=== PATIENT | male | born 1975 | race Caucasian/White ===

== ENCOUNTER 2018-01-13 08:18 | Inpatient (IN) | payer OTHER ==
[2018-01-13] MEDS ORDERED: PIPERACILLIN-TAZOBACTAM 3.375 GM in DEXTROSE/WATER 1 50ML.BAG IVPB STA (08:56)
--- NOTE | 2018-01-13 08:57 | ED ---
Recheck HPI <Red Earl - Last Filed: 01/13/18 11:52> - General Source: patient, RN notes reviewed, old records reviewed Mode of arrival: ambulatory Limitations: no limitations <Shannan Cabral - Last Filed: 01/13/18 13:28> - General Chief Complaint: Recheck/Abnormal Lab/Rx Stated Complaint: diabetic ulcer, multiple issues Time Seen by Provider: 01/13/18 08:28 - History of Present Illness Initial Comments: patient is a 42-year-old male who recently moved back to the area chief complaint of needing his diabetic medications refilled and concern for a ulcer on the left lateral aspect of his foot. Patient reports that he has a history of alcoholism and had a TIPS procedure performed at 2012. Patient states that he is been doing well up until he was in [place] in July. He was admitted for high ammonia levels and confusion. He reports these been stabilized since then. Since his admission in [place] he has been out of his diabetic medications. He states that he return to this area 3 days ago. Patient states that he does not have a primary care provider has been out of his medications for his diabetes for many months. That is why he believes that he now has a diabetic ulcer. Patient states that he's noticed some swelling and redness extending up the left leg. He reports he has no chest pain or abdominal pain. Denies any specific fever but he has felt chills. Patient states that he has neuropathy in bilateralupper and lower extremities. (Shannan Cabral) - Related Data Home Medications Medication Instructions Recorded Confirmed No Known Home Medications [No 01/13/18 01/13/18 Known Home Medications] Allergies Allergy/AdvReac Type Severity Reaction Status Date / Time No Known Allergies Allergy Verified 01/13/18 08:50 Review of Systems ROS Other: All systems not noted in ROS Statement are negative. <Red Earl - Last Filed: 01/13/18 11:52> ROS Other: All systems not noted in ROS Statement are negative. <Shannan Cabral - Last Filed: 01/13/18 13:28> ROS Statement: Those systems with pertinent positive or pertinent negative responses have been documented in the HPI. Past Medical History Past Medical History: Diabetes Mellitus, Liver Disease History of Any Multi-Drug Resistant Organisms: None Reported Past Psychological History: Anxiety, Depression Smoking Status: Current every day smoker Past Alcohol Use History: Occasional Past Drug Use History: Marijuana <Shannan Cabral - Last Filed: 01/13/18 13:28> General Exam <Red Earl - Last Filed: 01/13/18 11:52> Limitations: no limitations General appearance: alert, in no apparent distress Head exam: Present: atraumatic, normocephalic, normal inspection Eye exam: Present: normal appearance, PERRL, EOMI. Absent: scleral icterus, conjunctival injection, periorbital swelling ENT exam: Present: normal exam, mucous membranes moist Neck exam: Present: normal inspection. Absent: tenderness, meningismus, lymphadenopathy Respiratory exam: Present: normal lung sounds bilaterally. Absent: respiratory distress, wheezes, rales, rhonchi, stridor Cardiovascular Exam: Present: regular rate, normal rhythm, normal heart sounds. Absent: systolic murmur, diastolic murmur, rubs, gallop, clicks GI/Abdominal exam: Present: soft, normal bowel sounds. Absent: distended, tenderness, guarding, rebound, rigid Extremities exam: Present: normal inspection, full ROM, normal capillary refill. Absent: tenderness, pedal edema, joint swelling, calf tenderness Left Lower Leg exam: Present: tenderness, swelling, erythema. Absent: normal inspection Ankle exam: Present: full ROM, tenderness, swelling. Absent: normal inspection Foot/Toe exam: Present: swelling, erythema. Absent: normal inspection (Patient has a 3 cm ulceration over the distal fifth metatarsal and lateral aspect of the foot.) Neurovascular tendon exam: Present: no vascular compromise Back exam: Present: normal inspection Neurological exam: Present: alert, oriented X3, CN II-XII intact Psychiatric exam: Present: normal affect, normal mood Skin exam: Present: warm, dry, intact, normal color. Absent: rash <Shannan Cabral - Last Filed: 01/13/18 13:28> - General Exam Comments Initial Comments: this is a 42-year-old male. He is pleasant. Alert and oriented 4. No acute distress. (Shannan Cabral) Course <Red Earl - Last Filed: 01/13/18 11:52> <Shannan Cabral - Last Filed: 01/13/18 13:28> Vital Signs 01/13/18 01/13/18 01/13/18 08:22 11:19 12:33 Temperature 98.1 F 98.6 F Pulse Rate 104 H 94 96 Respiratory 20 18 18 Rate Blood Pressure 113/59 139/79 106/68 O2 Sat by Pulse 98 98 98 Oximetry - Reevaluation(s) Reevaluation #1: 01/13/18 11:52 Patient reevaluated by myself, Dr. Earl. Patient does have ulcer of the left foot near the small toe, approximately 2 cm. There is some erythematous changes up to near the knee. There is warmth. No calf tenderness. Patient admits to not taking medication for diabetes recently. Blood sugars high. Case was discussed in detail with Dr. Carr, who will admit for hospital call. Patient was Updated. (Red Earl) Medical Decision Making - Lab Data Result diagrams: 01/13/18 08:53 01/13/18 08:53 <Red Earl - Last Filed: 01/13/18 11:52> - Lab Data Result diagrams: 01/13/18 08:53 01/13/18 08:53 - Radiology Data Radiology results: report reviewed <Shannan Cabral - Last Filed: 01/13/18 13:28> - Medical Decision Making This patient 42-year-old male with history of alcoholism and seizure many years ago. He states that he has history of diabetes and not been taking his medications for a long time. HEENT been over a few months. He states that he is concerned because is swelling and redness to the left lower extremity. He is concerned for an ulcer over the last wet foot. He has a 3 cm ulcer with surrounding cellulitis extending up the calf. His blood sugar is elevated 560. Started on insulin bolus. He doesn't elevated lactic acid 2.6. He does meet sepsis protocol. Patient was started on Zosyn and vancomycin. X-ray of the foot shows soft tissue swelling but no evidence of osteomyelitis. Patient was admitted to Dr. Carr's group. We will keep the patient for blood sugar control and infectious disease. (Shannan Cabral) - Lab Data Lab Results 01/13/18 01/13/18 01/13/18 Range/Units 08:53 08:53 08:53 WBC 3.2 L (3.8-10.6) k/uL RBC 2.68 L (4.30-5.90) m/uL Hgb 8.4 L (13.0-17.5) gm/dL Hct 25.0 L (39.0-53.0) % MCV 93.2 (80.0-100.0) fL MCH 31.4 (25.0-35.0) pg MCHC 33.7 (31.0-37.0) g/dL RDW 13.6 (11.5-15.5) % Plt Count 67 L (150-450) k/uL Neutrophils % 66 % Lymphocytes % 20 % Monocytes % 6 % Eosinophils % 5 % Basophils % 1 % Neutrophils # 2.1 (1.3-7.7) k/uL Lymphocytes # 0.6 L (1.0-4.8) k/uL Monocytes # 0.2 (0-1.0) k/uL Eosinophils # 0.2 (0-0.7) k/uL Basophils # 0.0 (0-0.2) k/uL Manual Slide Review Performed RBC Morphology Normal PT 11.4 (9.0-12.0) sec INR 1.2 H (<1.2) APTT 25.8 (22.0-30.0) sec Sodium 138 (137-145) mmol/L Potassium 4.4 (3.5-5.1) mmol/L Chloride 103 (98-107) mmol/L Carbon Dioxide 23 (22-30) mmol/L Anion Gap 12 mmol/L BUN 23 H (9-20) mg/dL Creatinine 1.28 H (0.66-1.25) mg/dL Est GFR (CKD-EPI)AfAm 78 (>60 ml/min/1.73 sqM) Est GFR (CKD-EPI)NonAf 68 (>60 ml/min/1.73 sqM) Glucose 513 H* (74-99) mg/dL POC Glucose (mg/dL) (75-99) mg/dL POC Glu Glass Curvature Gauger ID Lactic Ac Sepsis Rflx Plasma Lactic Acid Davi (0.7-2.0) mmol/L Calcium 8.6 (8.4-10.2) mg/dL Total Bilirubin 1.0 (0.2-1.3) mg/dL AST 19 (17-59) U/L ALT 18 L (21-72) U/L Alkaline Phosphatase 82 (38-126) U/L Total Protein 6.1 L (6.3-8.2) g/dL Albumin 2.9 L (3.5-5.0) g/dL Acetone, Qual (Negative) 01/13/18 01/13/18 01/13/18 Range/Units 08:53 08:53 09:59 WBC (3.8-10.6) k/uL RBC (4.30-5.90) m/uL Hgb (13.0-17.5) gm/dL Hct (39.0-53.0) % MCV (80.0-100.0) fL MCH (25.0-35.0) pg MCHC (31.0-37.0) g/dL RDW (11.5-15.5) % Plt Count (150-450) k/uL Neutrophils % % Lymphocytes % % Monocytes % % Eosinophils % % Basophils % % Neutrophils # (1.3-7.7) k/uL Lymphocytes # (1.0-4.8) k/uL Monocytes # (0-1.0) k/uL Eosinophils # (0-0.7) k/uL Basophils # (0-0.2) k/uL Manual Slide Review RBC Morphology PT (9.0-12.0) sec INR (<1.2) APTT (22.0-30.0) sec Sodium (137-145) mmol/L Potassium (3.5-5.1) mmol/L Chloride (98-107) mmol/L Carbon Dioxide (22-30) mmol/L Anion Gap mmol/L BUN (9-20) mg/dL Creatinine (0.66-1.25) mg/dL Est GFR (CKD-EPI)AfAm (>60 ml/min/1.73 sqM) Est GFR (CKD-EPI)NonAf (>60 ml/min/1.73 sqM) Glucose (74-99) mg/dL POC Glucose (mg/dL) (75-99) mg/dL POC Glu Glass Curvature Gauger ID Lactic Ac Sepsis Rflx Y Plasma Lactic Acid Davi 2.6 H* (0.7-2.0) mmol/L Calcium (8.4-10.2) mg/dL Total Bilirubin (0.2-1.3) mg/dL AST (17-59) U/L ALT (21-72) U/L Alkaline Phosphatase (38-126) U/L Total Protein (6.3-8.2) g/dL Albumin (3.5-5.0) g/dL Acetone, Qual Negative (Negative) 01/13/18 01/13/18 01/13/18 Range/Units 11:01 11:56 12:31 WBC (3.8-10.6) k/uL RBC (4.30-5.90) m/uL Hgb (13.0-17.5) gm/dL Hct (39.0-53.0) % MCV (80.0-100.0) fL MCH (25.0-35.0) pg MCHC (31.0-37.0) g/dL RDW (11.5-15.5) % Plt Count (150-450) k/uL Neutrophils % % Lymphocytes % % Monocytes % % Eosinophils % % Basophils % % Neutrophils # (1.3-7.7) k/uL Lymphocytes # (1.0-4.8) k/uL Monocytes # (0-1.0) k/uL Eosinophils # (0-0.7) k/uL Basophils # (0-0.2) k/uL Manual Slide Review RBC Morphology PT (9.0-12.0) sec INR (<1.2) APTT (22.0-30.0) sec Sodium (137-145) mmol/L Potassium (3.5-5.1) mmol/L Chloride (98-107) mmol/L Carbon Dioxide (22-30) mmol/L Anion Gap mmol/L BUN (9-20) mg/dL Creatinine (0.66-1.25) mg/dL Est GFR (CKD-EPI)AfAm (>60 ml/min/1.73 sqM) Est GFR (CKD-EPI)NonAf (>60 ml/min/1.73 sqM) Glucose (74-99) mg/dL POC Glucose (mg/dL) 542 H 545 H 478 H (75-99) mg/dL POC Glu Glass Curvature Gauger ID Radha Chiu Ariel Thompson, Karen Lactic Ac Sepsis Rflx Plasma Lactic Acid Davi (0.7-2.0) mmol/L Calcium (8.4-10.2) mg/dL Total Bilirubin (0.2-1.3) mg/dL AST (17-59) U/L ALT (21-72) U/L Alkaline Phosphatase (38-126) U/L Total Protein (6.3-8.2) g/dL Albumin (3.5-5.0) g/dL Acetone, Qual (Negative) - Radiology Data X-ray the foot shows evidence of soft tissue swelling. No visible osteomyelitis. (Shannan Cabral) Disposition <Red Earl - Last Filed: 01/13/18 11:52> Time of Disposition: 12:07 <Shannan Cabral - Last Filed: 01/13/18 13:28> Clinical Impression: Diabetic ulcer of left foot, Hyperglycemia, Sepsis, Cellulitis, leg Disposition: HOME SELF-CARE Condition: Good Referrals: None,Stated [Primary Care Provider] - 1-2 days
[2018-01-13] MEDS: SODIUM CHLORIDE 0.9% 1,000 ML IV ONE ×2 (09:01→10:22)
[2018-01-13] MEDS: SODIUM CHLORIDE 0.9% 1,000 ML IV SCH ×6 (09:01→23:21)
--- NOTE | 2018-01-13 09:23 | XR ---
EXAMINATION TYPE: XR foot complete LT DATE OF EXAM: 01/13/2018 CLINICAL HISTORY: Plantar lateral ulceration with history of diabetes. TECHNIQUE: Frontal, lateral, and oblique images of the left foot are obtained. COMPARISON: None FINDINGS: There is soft tissue swelling seen diffusely of the midfoot and forefoot most pronounced do rsally with small vessel atheromatous calcifications suggestive of peripheral arterial disease. Small Achilles and plantar enthesophytes are noted. No cortical erosions or cortical thickening are seen. There is no acute fracture/dislocation evident in the left foot. The joint spaces in the left foot a ppear within normal limits. IMPRESSION: Diffuse soft tissue swelling of the left foot most pronounced of the midfoot and forefoot with no radiographic sequela of osteomyelitis.
[2018-01-13 09:30] LABS: INR 1.2 (<1.2); Partial Thromboplastin Time 25.8 sec (22.0-30.0); Prothrombin Time 11.4 sec (9.0-12.0)
[2018-01-13 09:42] LABS: Albumin 2.9 g/dL (3.5-5.0); Calcium 8.6 mg/dL (8.4-10.2); Potassium 4.4 mmol/L (3.5-5.1); Total Protein 6.1 g/dL (6.3-8.2)
[2018-01-13 09:50] LABS: Basophils % (A) 1 %; Eosinophils # (A) 0.2 k/uL (0-0.7); Eosinophils % (A) 5 %; HGB 8.4 gm/dL (13.0-17.5); Lymphocytes # (A) 0.6 k/uL (1.0-4.8); Lymphocytes % (A) 20 %; MCH 31.4 pg (25.0-35.0); MCHC 33.7 g/dL (31.0-37.0); MCV 93.2 fL (80.0-100.0); Mean Platelet Volume 9.2; Monocytes # (A) 0.2 k/uL (0-1.0); Monocytes % (A) 6 %; Neutrophils # (A) 2.1 k/uL (1.3-7.7); Neutrophils % (A) 66 %; RBC 2.68 m/uL (4.30-5.90); RDW 13.6 % (11.5-15.5); WBC 3.2 k/uL (3.8-10.6)
[2018-01-13] MEDS ORDERED: INSULIN REGULAR BOLUS (FROM DRIP BAG) IV ONE (10:16)
[2018-01-13] MEDS ORDERED: INSULIN REGULAR 100 UNIT in SODIUM CHLORIDE 0.9% 100 ML IV SCH ×2 (10:30→15:00)
[2018-01-13 10:46] LABS: Platelet Count 67 k/uL (150-450)
[2018-01-13 11:05] LABS: Glucose,Whole Blood 542 mg/dL (75-99)
[2018-01-13] MEDS ORDERED: LORazepam 2 MG/ML INJ IV STA (11:50)
[2018-01-13] MEDS ORDERED: ALPRAZolam 0.5 MG TAB PO STA (11:50)
[2018-01-13 12:03] LABS: Glucose,Whole Blood 545 mg/dL (75-99)
[2018-01-13] MEDS ORDERED: VANCOMYCIN IV PER PHARMACY 1 EACH MISC MISCELLANE PRN (12:07)
[2018-01-13] MEDS ORDERED: KETOROLAC 30 MG/ML 1 ML VIAL IVP PRN (12:09)
[2018-01-13] MEDS ORDERED: IBUPROFEN 400 MG TAB PO PRN (12:09)
[2018-01-13] MEDS ORDERED: ONDANSETRON 4 MG/2 ML VIAL IVP PRN (12:09)
[2018-01-13] MEDS ORDERED: ACETAMINOPHEN TAB 325 MG TAB PO PRN (12:09)
[2018-01-13] MEDS ORDERED: NALOXONE 0.4 MG/ML 1 ML VIAL IV PRN (12:09)
[2018-01-13] MEDS ORDERED: INSULIN ASPART 100 UNIT/ML 1 ML 10 ML VIAL SQ SCH (12:30)
[2018-01-13 12:32] LABS: Glucose,Whole Blood 478 mg/dL (75-99)
[2018-01-13] MEDS ORDERED: VANCOMYCIN 2,500 MG in SODIUM CHLORIDE 0.9% 500 ML IVPB ONE (13:00)
--- NOTE | 2018-01-13 13:29 | US ---
EXAMINATION TYPE: US venous doppler duplex LE LT DATE OF EXAM: 01/13/2018 1:18 PM COMPARISON: NONE CLINICAL HISTORY: Pain. Diabetic. No hx of DVT or on blood thinners. Left foot ulcer. SIDE PERFORMED: Left TECHNIQUE: The lower extremity deep venous system is examined utilizing real time linear array sonog pk with graded compression, doppler sonography and color-flow sonography. VESSELS IMAGED: External Iliac Vein (EIV) Common Femoral Vein Deep Femoral Vein Greater Saphenous Vein * Femoral Vein Popliteal Vein Small Saphenous Vein * Proximal Calf Veins (* superficial vessels) Left Leg: Negative for DVT Grayscale, color doppler, spectral doppler imaging performed of the deep veins of the left lower extr emity. There is normal flow, compressibility, vascular waveforms. IMPRESSION: No ultrasound evidence for acute DVT in the left lower extremity.
[2018-01-13 13:41] LABS: Glucose,Whole Blood 401 mg/dL (75-99)
[2018-01-13 14:49] VITALS: BMI 31.4
[2018-01-13] MEDS ORDERED: traMADol 50 MG TAB PO PRN (14:54)
[2018-01-13] MEDS: ALPRAZolam 0.5 MG TAB PO PRN ×2 (15:11→23:19)
[2018-01-13] MEDS: MORPHINE SULFATE/PF 10MG/10ML VL IV PRN ×2 (15:11→23:18)
[2018-01-13 15:31] LABS: Glucose,Whole Blood 290 mg/dL (75-99)
--- NOTE | 2018-01-13 16:50 | P.HPIM ---
History of Present Illness 42-year-old male with known history of type 2 diabetes mellitus but does stop taking his diuretic medications came in with complaints of a left foot ulcer in the lateral, plantar aspect of the left fifth toe. With local is of temperature and patient had these symptoms going on for about a week or more denied any fever chills. Patient has pancytopenia he used to be an alcoholic in the past he said he doesn't drink alcohol on regular basis anymore will obtain a B12 level today patient's MCV is essentially within normal limits. Patient has a lot of anxiety issues. Patient was started on vancomycin and Zosyn wound cultures and blood cultures were obtained. Patient does have severe bilateral peripheral neuropathy but still complains of severe pain patient is barely arousable when I tried to evaluate the patient and did not provide me good history Review of Systems REVIEW OF SYSTEMS: CONSTITUTIONAL: No fever, no malaise, no fatigue. HEENT: No recent visual problems or hearing problems. Denied any sore throat. CARDIOVASCULAR: No chest pain, orthopnea, PND, no palpitations, no syncope. PULMONARY: No shortness of breath, no cough, no hemoptysis. GASTROINTESTINAL: No diarrhea, no nausea, no vomiting, no abdominal pain. Normoactive bowel sounds. NEUROLOGICAL: No headaches, no weakness, no numbness. HEMATOLOGICAL: Denies any bleeding or petechiae. GENITOURINARY: Denies any burning micturition, frequency, or urgency. MUSCULOSKELETAL/RHEUMATOLOGICAL: As mentioned in HPI ENDOCRINE: Denies any polyuria or polydipsia. The rest of the 14-point review of systems is negative. Past Medical History Past Medical History: Diabetes Mellitus, Liver Disease Additional Past Medical History / Comment(s): NIDDM type II, cirrhosis, alcoholism, esophageal varicies, upper and lower GI bleeds, pt states lately he has been having confusion/memory impairment/shakiness and balance problems. History of Any Multi-Drug Resistant Organisms: None Reported Additional Past Surgical History / Comment(s): EGD, TIPS procedure Past Anesthesia/Blood Transfusion Reactions: No Reported Reaction Past Psychological History: Anxiety, Depression Smoking Status: Current every day smoker Past Alcohol Use History: Occasional Past Drug Use History: Marijuana - Past Family History Father Additional Family Medical History / Comment(s): " My dad drank himself to . " Mother Family Medical History: Cancer Additional Family Medical History / Comment(s): Mother from pancreatic cancer. Medications and Allergies Home Medications Medication Instructions Recorded Confirmed Type No Known Home Medications [No 01/13/18 01/13/18 History Known Home Medications] Allergies Allergy/AdvReac Type Severity Reaction Status Date / Time No Known Allergies Allergy Verified 01/13/18 08:50 Physical Exam Vitals: Vital Signs Temp Pulse Pulse Resp BP BP Pulse Ox 01/13/18 16:00 91 20 01/13/18 15:00 98 F 91 20 113/63 98 01/13/18 13:40 98.5 F 94 18 121/78 98 01/13/18 12:33 98.6 F 96 18 106/68 98 01/13/18 11:19 94 18 139/79 98 01/13/18 08:22 98.1 F 104 H 20 113/59 98 Intake and Output 01/13/18 01/13/18 01/13/18 06:59 14:59 22:59 Other: Weight 120.202 kg 120.202 kg PHYSICAL EXAMINATION: GENERAL: The patient is alert and oriented x3, not in any acute distress. Well developed, well nourished. HEENT: Pupils are round and equally reacting to light. EOMI. No scleral icterus. No conjunctival pallor. Normocephalic, atraumatic. No pharyngeal erythema. No thyromegaly. CARDIOVASCULAR: S1 and S2 present. No murmurs, rubs, or gallops. PULMONARY: Chest is clear to auscultation, no wheezing or crackles. ABDOMEN: Soft, nontender, nondistended, normoactive bowel sounds. No palpable organomegaly. MUSCULOSKELETAL: No joint swelling or deformity. EXTREMITIES: No cyanosis, clubbing, A stage 3-4 dependent ulcer in the plantar and lateral aspect of the proximal to left fifth toe with local is of temperature and minimal redness NEUROLOGICAL: Gross neurological examination did not reveal any focal deficits. SKIN: No rashes. Results CBC & Chem 7: 01/13/18 08:53 01/13/18 08:53 Labs: Abnormal Lab Results - Last 24 Hours (Table) 01/13/18 01/13/18 01/13/18 Range/Units 08:53 08:53 08:53 WBC 3.2 L (3.8-10.6) k/uL RBC 2.68 L (4.30-5.90) m/uL Hgb 8.4 L (13.0-17.5) gm/dL Hct 25.0 L (39.0-53.0) % Plt Count 67 L (150-450) k/uL Lymphocytes # 0.6 L (1.0-4.8) k/uL INR 1.2 H (<1.2) BUN 23 H (9-20) mg/dL Creatinine 1.28 H (0.66-1.25) mg/dL Glucose 513 H* (74-99) mg/dL POC Glucose (mg/dL) (75-99) mg/dL Plasma Lactic Acid Davi (0.7-2.0) mmol/L ALT 18 L (21-72) U/L Total Protein 6.1 L (6.3-8.2) g/dL Albumin 2.9 L (3.5-5.0) g/dL 01/13/18 01/13/18 01/13/18 Range/Units 08:53 11:01 11:56 WBC (3.8-10.6) k/uL RBC (4.30-5.90) m/uL Hgb (13.0-17.5) gm/dL Hct (39.0-53.0) % Plt Count (150-450) k/uL Lymphocytes # (1.0-4.8) k/uL INR (<1.2) BUN (9-20) mg/dL Creatinine (0.66-1.25) mg/dL Glucose (74-99) mg/dL POC Glucose (mg/dL) 542 H 545 H (75-99) mg/dL Plasma Lactic Acid Davi 2.6 H* (0.7-2.0) mmol/L ALT (21-72) U/L Total Protein (6.3-8.2) g/dL Albumin (3.5-5.0) g/dL 01/13/18 01/13/18 01/13/18 Range/Units 12:31 13:18 13:37 WBC (3.8-10.6) k/uL RBC (4.30-5.90) m/uL Hgb (13.0-17.5) gm/dL Hct (39.0-53.0) % Plt Count (150-450) k/uL Lymphocytes # (1.0-4.8) k/uL INR (<1.2) BUN (9-20) mg/dL Creatinine (0.66-1.25) mg/dL Glucose (74-99) mg/dL POC Glucose (mg/dL) 478 H 401 H (75-99) mg/dL Plasma Lactic Acid Davi 2.1 H* (0.7-2.0) mmol/L ALT (21-72) U/L Total Protein (6.3-8.2) g/dL Albumin (3.5-5.0) g/dL 01/13/18 Range/Units 15:19 WBC (3.8-10.6) k/uL RBC (4.30-5.90) m/uL Hgb (13.0-17.5) gm/dL Hct (39.0-53.0) % Plt Count (150-450) k/uL Lymphocytes # (1.0-4.8) k/uL INR (<1.2) BUN (9-20) mg/dL Creatinine (0.66-1.25) mg/dL Glucose (74-99) mg/dL POC Glucose (mg/dL) 290 H (75-99) mg/dL Plasma Lactic Acid Davi (0.7-2.0) mmol/L ALT (21-72) U/L Total Protein (6.3-8.2) g/dL Albumin (3.5-5.0) g/dL Thrombosis Risk Factor Assmnt - Choose All That Apply Any of the Below Risk Factors Present?: Yes Each Factor Represents 1 point: Age 41-60 years, Obesity (BMI >25), Sepsis (< 1month) Other Risk Factors: No Other congenital or acquired thrombophilia - If yes, enter type in comment: No Thrombosis Risk Factor Assessment Total Risk Factor Score: 3 Thrombosis Risk Factor Assessment Level: Moderate Risk Assessment and Plan Plan: -Diabetic foot ulcer: Infectious disease will be consulted patient need to be evaluated for osteomyelitis because of the severity of the wound and infection patient will be started on Zosyn as well along with vancomycin. -Uncontrolled diabetes with us due to noncompliance with medications. Patient is presently on IV insulin which will be switched to Lantus and pre-meal insulin , patient is not in DKA or hyperosmolar state. 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 Next line-elevated lactic acidosis secondary to intravascular volume depletion from diuresis but is along with the diabetic foot infection. -Pancytopenia probably related to his all Cardizem will obtain a B12 level may need further evaluation as an outpatient
[2018-01-13 17:06] LABS: Glucose,Whole Blood 260 mg/dL (75-99)
[2018-01-13] MEDS: INSULIN ASPART 100 UNIT/ML 1 ML 10 ML VIAL SQ SCH ×2 (17:44→19:56)
[2018-01-13] MEDS: INSULIN DETEMIR 100 UNIT/ML 10 ML VIAL SQ SCH (19:53)
[2018-01-13 20:11] LABS: Glucose,Whole Blood 160 mg/dL (75-99)
--- NOTE | 2018-01-13 22:45 | P.CONS ---
History of Present Illness - Reason for Consult Consult date: 01/13/18 - Chief Complaint Ulcer left foot - History of Present Illness 42-year-old male presents to emergency center with a made a history of increasing difficulties with his left foot. Patient has a long-standing history of diabetes mellitus type 2 relates he had stopped taking his medications. The patient had glucose level of greater than 500 at the time of his presentation is improved with insulin therapy. Initially the patient has a history also of severe peripheral neuropathy and has received medications and is quite sedated at this point in time without significant complaints. The patient relates that he's not been taking severe lots of medication, he does have chronic pancytopenia from chronic alcoholism. With evidence of an extensive diabetic foot infection the infectious diseases consultation was requested. The patient does not relate to significant known trauma, he does not have diabetic shoes, and is noted is not taking his diabetes medications at home and has uncontrolled diabetes. Review of Systems HEENT:Denies headache or acute visual change. Denies sinus or mouth discomforts. Denies neck stiffness or pain. Denies significant oral cavity pain. Denies difficulty on swallowing. Lungs: Denies significant shortness of breath, cough, sputum production, or hemoptysis. Cardiovascular: Denies significant shortness of breath, chest pain, chest wall pain, orthopnea, dyspnea on exertion, syncope Gastrointestinal:Denies nausea, vomiting, diarrhea, constipation, hematemesis, melena, hematochezia. No no significant change of bowel habit noticed. Musculoskeletal: denies significant myalgias or arthralgias. No new joint swelling. Denies new back pain. Skin: Ulceration to the left foot Neuro: Feels poorly with severe peripheral neuropathy which affects his ability to walk but does not have any new onset weakness Psychiatric: Chronic anxiety and pain Endocrine: Complains of fatigue and some weight loss Past Medical History Past Medical History: Diabetes Mellitus, Liver Disease Additional Past Medical History / Comment(s): NIDDM type II, cirrhosis, alcoholism, esophageal varicies, upper and lower GI bleeds, pt states lately he has been having confusion/memory impairment/shakiness and balance problems. History of Any Multi-Drug Resistant Organisms: None Reported Additional Past Surgical History / Comment(s): EGD, TIPS procedure Past Anesthesia/Blood Transfusion Reactions: No Reported Reaction Past Psychological History: Anxiety, Depression Additional Psychological History / Comment(s): Single and lives with his significant other. No animal exposures. No experience. No international travel. No current injection drug use. History of tobacco and alcohol use which seems to be current Smoking Status: Current every day smoker Past Alcohol Use History: Occasional Past Drug Use History: Marijuana - Past Family History Father Additional Family Medical History / Comment(s): " My dad drank himself to . " Mother Family Medical History: Cancer Additional Family Medical History / Comment(s): Mother from pancreatic cancer. Medications and Allergies Home Medications and Allergies Comment(s): Current Medications Acetaminophen (Tylenol Tab) 650 mg PO Q6HR PRN PRN Reason: Mild Pain or Fever > 100.5 Hydrocodone Bitart/Acetaminophen (Hazlet 7.5-325) 1 each PO Q6H PRN PRN Reason: Pain Alprazolam (Xanax) 0.5 mg PO QID PRN PRN Reason: Anxiety Last Admin: 01/13/18 15:11 Dose: 0.5 mg Sodium Chloride (Saline 0.9%) 1,000 mls @ 125 mls/hr IV .Q8H [facility] Last Admin: 01/13/18 17:44 Dose: 125 mls/hr Sodium Chloride (Saline 0.9%) 1,000 mls @ 200 mls/hr IV .Q5H [facility] Last Admin: 01/13/18 19:56 Dose: 200 mls/hr Vancomycin HCl 2,000 mg/ (Sodium Chloride) 500 mls @ 167 mls/hr IVPB Q12H [facility] Insulin Aspart (Novolog) 8 unit SQ ACHS [facility] Last Admin: 01/13/18 19:56 Dose: 8 unit Insulin Detemir (Levemir) 30 unit SQ HS [facility] Last Admin: 01/13/18 19:53 Dose: 30 unit Morphine Sulfate (Morphine Sulfate) 4 mg IV Q4HR PRN PRN Reason: Severe Pain Last Admin: 01/13/18 15:11 Dose: 4 mg Naloxone HCl (Narcan) 0.2 mg IV Q2M PRN PRN Reason: Opioid Reversal Ondansetron HCl (Zofran) 4 mg IVP Q8HR PRN PRN Reason: Nausea And Vomiting Tramadol HCl (Ultram) 50 mg PO QID PRN PRN Reason: MODERATE Pain Home Medications Medication Instructions Recorded Confirmed Type No Known Home Medications [No 01/13/18 01/13/18 History Known Home Medications] Allergies Allergy/AdvReac Type Severity Reaction Status Date / Time No Known Allergies Allergy Verified 01/13/18 08:50 Physical Exam Vitals: Vital Signs Temp Pulse Pulse Resp BP BP Pulse Ox 01/13/18 16:00 91 20 01/13/18 15:00 98 F 91 20 113/63 98 01/13/18 13:40 98.5 F 94 18 121/78 98 01/13/18 12:33 98.6 F 96 18 106/68 98 01/13/18 11:19 94 18 139/79 98 01/13/18 08:22 98.1 F 104 H 20 113/59 98 Intake and Output 01/13/18 01/13/18 01/13/18 06:59 14:59 22:59 Intake Total 23.958 Balance 23.958 Intake: Intake, IV Titration 23.958 Amount Insulin Regular 100 unit 23.958 In Sodium Chloride 0.9% 100 ml @ Titrate IV .Q0M [facility] Rx#:[id number] Other: Weight 120.202 kg 120.202 kg 42-year-old male, 6 feet 5 inches tall HEENT: Anicteric conjunctiva are pink and moist nasal mucosa grossly intact without significant lesions, there is no thrush. Poor dentition Neck: The neck is supple without significant lymphadenopathy or thyromegaly. Lungs: Symmetrical entry is noted scattered wheezes are heard no bronchial sounds no dullness or egophony Heart: Regular rate and rhythm with an audible S1-S2, no S3 soft S4. There is no significant murmur click or rub, PMI was nondisplaced. Abdomen: Positive bowel sounds soft and nontender without palpable masses or organomegaly. There was no guarding or rebound. Extremities: The upper extremities have excellent pulses they are symmetric, no significant petechiae or telangiectasia. No splinter hemorrhages were noted. The left lower extremity is considerably larger in size than the right. Duplex performed without evidence of deep venous thrombosis. Left foot shows evidence of the ulceration at the lateral plantar surface the ulceration is approximately 3 x 2 x 0.2 cm with no expressible purulence the foot is tender to touch there is surrounding erythema and ascending erythema along the lateral aspect of the calf. There is no erythema on the thigh and there is no significant tenderness in the left inguinal area. No lymphadenopathy is noted left inguinal or other areas. Neuro: Awake alert oriented to person place and time. Patient does seem to have markedly diminished sensation to the bilateral feet on exam, but is agitated when the feet are touched when he is watching Results CBC & Chem 7: 01/13/18 08:53 01/13/18 08:53 Labs: Abnormal Lab Results - Last 24 Hours (Table) 01/13/18 01/13/18 01/13/18 Range/Units 08:53 08:53 08:53 WBC 3.2 L (3.8-10.6) k/uL RBC 2.68 L (4.30-5.90) m/uL Hgb 8.4 L (13.0-17.5) gm/dL Hct 25.0 L (39.0-53.0) % Plt Count 67 L (150-450) k/uL Lymphocytes # 0.6 L (1.0-4.8) k/uL INR 1.2 H (<1.2) BUN 23 H (9-20) mg/dL Creatinine 1.28 H (0.66-1.25) mg/dL Glucose 513 H* (74-99) mg/dL POC Glucose (mg/dL) (75-99) mg/dL Plasma Lactic Acid Davi (0.7-2.0) mmol/L ALT 18 L (21-72) U/L Total Protein 6.1 L (6.3-8.2) g/dL Albumin 2.9 L (3.5-5.0) g/dL 01/13/18 01/13/18 01/13/18 Range/Units 08:53 11:01 11:56 WBC (3.8-10.6) k/uL RBC (4.30-5.90) m/uL Hgb (13.0-17.5) gm/dL Hct (39.0-53.0) % Plt Count (150-450) k/uL Lymphocytes # (1.0-4.8) k/uL INR (<1.2) BUN (9-20) mg/dL Creatinine (0.66-1.25) mg/dL Glucose (74-99) mg/dL POC Glucose (mg/dL) 542 H 545 H (75-99) mg/dL Plasma Lactic Acid Davi 2.6 H* (0.7-2.0) mmol/L ALT (21-72) U/L Total Protein (6.3-8.2) g/dL Albumin (3.5-5.0) g/dL 01/13/18 01/13/18 01/13/18 Range/Units 12:31 13:18 13:37 WBC (3.8-10.6) k/uL RBC (4.30-5.90) m/uL Hgb (13.0-17.5) gm/dL Hct (39.0-53.0) % Plt Count (150-450) k/uL Lymphocytes # (1.0-4.8) k/uL INR (<1.2) BUN (9-20) mg/dL Creatinine (0.66-1.25) mg/dL Glucose (74-99) mg/dL POC Glucose (mg/dL) 478 H 401 H (75-99) mg/dL Plasma Lactic Acid Davi 2.1 H* (0.7-2.0) mmol/L ALT (21-72) U/L Total Protein (6.3-8.2) g/dL Albumin (3.5-5.0) g/dL 01/13/18 01/13/18 01/13/18 Range/Units 15:19 17:04 20:10 WBC (3.8-10.6) k/uL RBC (4.30-5.90) m/uL Hgb (13.0-17.5) gm/dL Hct (39.0-53.0) % Plt Count (150-450) k/uL Lymphocytes # (1.0-4.8) k/uL INR (<1.2) BUN (9-20) mg/dL Creatinine (0.66-1.25) mg/dL Glucose (74-99) mg/dL POC Glucose (mg/dL) 290 H 260 H 160 H (75-99) mg/dL Plasma Lactic Acid Davi (0.7-2.0) mmol/L ALT (21-72) U/L Total Protein (6.3-8.2) g/dL Albumin (3.5-5.0) g/dL Microbiology - Last 24 Hours (Table) 01/13/18 08:53 Wound Culture - Preliminary Foot - Left Laboratory Results WBC 3.2 k/uL (3.8-10.6) L 01/13/18 08:53 RBC 2.68 m/uL (4.30-5.90) L 01/13/18 08:53 Hgb 8.4 gm/dL (13.0-17.5) L 01/13/18 08:53 Hct 25.0 % (39.0-53.0) L 01/13/18 08:53 MCV 93.2 fL (80.0-100.0) 01/13/18 08:53 MCH 31.4 pg (25.0-35.0) 01/13/18 08:53 MCHC 33.7 g/dL (31.0-37.0) 01/13/18 08:53 RDW 13.6 % (11.5-15.5) 01/13/18 08:53 Plt Count 67 k/uL (150-450) L 01/13/18 08:53 Neutrophils % 66 % 01/13/18 08:53 Lymphocytes % 20 % 01/13/18 08:53 Monocytes % 6 % 01/13/18 08:53 Eosinophils % 5 % 01/13/18 08:53 Basophils % 1 % 01/13/18 08:53 Neutrophils # 2.1 k/uL (1.3-7.7) 01/13/18 08:53 Lymphocytes # 0.6 k/uL (1.0-4.8) L 01/13/18 08:53 Monocytes # 0.2 k/uL (0-1.0) 01/13/18 08:53 Eosinophils # 0.2 k/uL (0-0.7) 01/13/18 08:53 Basophils # 0.0 k/uL (0-0.2) 01/13/18 08:53 Manual Slide Review Performed 01/13/18 08:53 RBC Morphology Normal 01/13/18 08:53 PT 11.4 sec (9.0-12.0) 01/13/18 08:53 INR 1.2 (<1.2) H 01/13/18 08:53 APTT 25.8 sec (22.0-30.0) 01/13/18 08:53 Sodium 138 mmol/L (137-145) 01/13/18 08:53 Potassium 4.4 mmol/L (3.5-5.1) 01/13/18 08:53 Chloride 103 mmol/L (98-107) 01/13/18 08:53 Carbon Dioxide 23 mmol/L (22-30) 01/13/18 08:53 Anion Gap 12 mmol/L 01/13/18 08:53 BUN 23 mg/dL (9-20) H 01/13/18 08:53 Creatinine 1.28 mg/dL (0.66-1.25) H 01/13/18 08:53 Est GFR (CKD-EPI)AfAm 78 (>60 ml/min/1.73 sqM) 01/13/18 08:53 Est GFR (CKD-EPI)NonAf 68 (>60 ml/min/1.73 sqM) 01/13/18 08:53 Glucose 513 mg/dL (74-99) H* 01/13/18 08:53 POC Glucose (mg/dL) 160 mg/dL (75-99) H 01/13/18 20:10 POC Glu Lock Master ID Lisa Calderón 01/13/18 20:10 Lactic Ac Sepsis Rflx Y 01/13/18 09:59 Plasma Lactic Acid Davi 2.1 mmol/L (0.7-2.0) H* 01/13/18 13:18 Calcium 8.6 mg/dL (8.4-10.2) 01/13/18 08:53 Total Bilirubin 1.0 mg/dL (0.2-1.3) 01/13/18 08:53 AST 19 U/L (17-59) 01/13/18 08:53 ALT 18 U/L (21-72) L 01/13/18 08:53 Alkaline Phosphatase 82 U/L (38-126) 01/13/18 08:53 Total Protein 6.1 g/dL (6.3-8.2) L 01/13/18 08:53 Albumin 2.9 g/dL (3.5-5.0) L 01/13/18 08:53 Acetone, Qual Negative (Negative) 01/13/18 08:53 Microbiology 01/13/18 08:53 Foot - Left Wound Culture - Preliminary Assessment and Plan (1) Hyperosmolar non-ketotic state in patient with type 2 diabetes mellitus Current Visit: Yes Status: Acute Code(s): E11.01 - TYPE 2 DIABETES MELLITUS WITH HYPEROSMOLARITY WITH COMA SNOMED Code(s): 700107450 (2) Diabetic ulcer of left foot associated with type 2 diabetes mellitus, with fat layer exposed Narrative/Plan: 42-year-old male presents to hospital with a several-day history of worsening ulceration to the lateral aspect of his left foot. His a long- standing history of diabetes mellitus type 2 poorly controlled. He's not been taking any medications as of late. He also has a history of ongoing tobacco and alcohol use. At this time evaluation for underlying osteomyelitis will be done with a bone scan, cultures are then obtained a blood cultures are in process. Antibiotic therapy with vancomycin and Zosyn has been started which is appropriate for this very worrisome ulceration which could be involving the underlying bony structures. Local wound care with therahoney is requested and offloading to the site is requested. He will be seen by dietary to improve his protein intake and help with his poorly controlled diabetes. The patient was complaining of severe pain is now much more comfortable. No evidence of any deep venous thrombosis at admission. The etiology of the left leg swelling is not clear, patient does have underlying liver disease and could be related to this but is somewhat asymmetric. Patient not providing history of any significant trauma or prior surgical interventions into the left leg. The foot is warm and well perfused with easily palpable pulse. Current Visit: Yes Status: Acute Code(s): E11.621 - TYPE 2 DIABETES MELLITUS WITH FOOT ULCER; L97.522 - NON-PRS CHRONIC ULCER OTH PRT LEFT FOOT W FAT LAYER EXPOSED SNOMED Code(s): 0940447587124 (3) Other drug-induced pancytopenia Current Visit: Yes Status: Acute Code(s): D61.811 - OTHER DRUG-INDUCED PANCYTOPENIA SNOMED Code(s): 5584538
[2018-01-13] MEDS: VANCOMYCIN 2,000 MG in SODIUM CHLORIDE 0.9% 500 ML IVPB SCH (23:20)
[2018-01-14] MEDS: SODIUM CHLORIDE 0.9% 1,000 ML IV SCH ×8 (00:23→20:14)
[2018-01-14 07:30] LABS: Glucose,Whole Blood 244 mg/dL (75-99)
[2018-01-14 07:34] LABS: HCT 24.1 % (39.0-53.0); HGB 8.1 gm/dL (13.0-17.5); MCH 31.3 pg (25.0-35.0); MCHC 33.4 g/dL (31.0-37.0); MCV 93.6 fL (80.0-100.0); Mean Platelet Volume 9.4; RBC 2.58 m/uL (4.30-5.90); RDW 13.8 % (11.5-15.5); WBC 2.6 k/uL (3.8-10.6)
[2018-01-14 07:52] LABS: Platelet Count 59 k/uL (150-450)
[2018-01-14] MEDS: INSULIN ASPART 100 UNIT/ML 1 ML 10 ML VIAL SQ SCH ×4 (08:22→21:55)
[2018-01-14] MEDS: ALPRAZolam 0.5 MG TAB PO PRN ×2 (08:28→18:24)
[2018-01-14] MEDS: MORPHINE SULFATE/PF 10MG/10ML VL IV PRN (08:28)
[2018-01-14 09:17] LABS: Anion Gap 8 mmol/L; Blood Urea Nitrogen 20 mg/dL (9-20); C Reactive Protein 21.2 mg/L (<10.0); Calcium 8.4 mg/dL (8.4-10.2); Carbon Dioxide 23 mmol/L (22-30); Chloride 111 mmol/L (98-107); Glucose 247 mg/dL (74-99); Sodium 142 mmol/L (137-145)
[2018-01-14 10:15] LABS: Erythrocyte Sedimentation Rate 46 mm/hr (0-15)
[2018-01-14 11:46] LABS: Glucose,Whole Blood 315 mg/dL (75-99)
[2018-01-14] MEDS: VANCOMYCIN 2,000 MG in SODIUM CHLORIDE 0.9% 500 ML IVPB SCH ×2 (12:16→23:56)
[2018-01-14 13:09] LABS: Hepatitis A Antibody IgM Non-Reactive (Non-Reactive); Hepatitis B Core IgM Non-Reactive (Non-Reactive)
--- NOTE | 2018-01-14 13:23 | P.PN ---
Subjective Patient will go for better bone scan. Patient has diabetic foot ulcer. Patient is Zosyn and vancomycin wound cultures blood cultures are pending. Constitutional: Denied any fatigue denied any fever. Cardio vascular: denied any chest pain, palpitations Gastrointestinal denied any nausea vomiting Pulmonary: Denied any shortness of breath cough Neurologic denied any new focal deficits Objective - Vital Signs Vital signs: Vital Signs Temp 98.3 F 01/14/18 07:00 Pulse 89 01/14/18 07:00 Resp 18 01/14/18 07:00 BP 105/63 01/14/18 07:00 Pulse Ox 97 01/14/18 07:00 Intake & Output 01/13/18 01/14/18 01/14/18 18:59 06:59 18:59 Intake Total 23.958 590 Balance 23.958 590 Weight 120.202 kg 120.202 kg Intake: Intake, IV Titration 23.958 Amount Insulin Regular 100 unit 23.958 In Sodium Chloride 0.9% 100 ml @ Titrate IV .Q0M [facility] Rx#:[id number] Oral 590 Other: Voiding Method Toilet # Voids 3 3 - Exam PHYSICAL EXAMINATION: GENERAL: The patient is alert and oriented x3, not in any acute distress. Well developed, well nourished. HEENT: Pupils are round and equally reacting to light. EOMI. No scleral icterus. No conjunctival pallor. Normocephalic, atraumatic. No pharyngeal erythema. No thyromegaly. CARDIOVASCULAR: S1 and S2 present. No murmurs, rubs, or gallops. PULMONARY: Chest is clear to auscultation, no wheezing or crackles. ABDOMEN: Soft, nontender, nondistended, normoactive bowel sounds. No palpable organomegaly. MUSCULOSKELETAL: No joint swelling or deformity. EXTREMITIES: No cyanosis, clubbing, A stage 3-4 dependent ulcer in the plantar and lateral aspect of the proximal to left fifth toe with local is of temperature and minimal redness NEUROLOGICAL: Gross neurological examination did not reveal any focal deficits. SKIN: No rashes. - Labs CBC & Chem 7: 01/14/18 07:00 01/14/18 07:00 Labs: Abnormal Lab Results - Last 24 Hours (Table) 01/13/18 01/13/18 01/13/18 Range/Units 13:18 13:37 15:19 WBC (3.8-10.6) k/uL RBC (4.30-5.90) m/uL Hgb (13.0-17.5) gm/dL Hct (39.0-53.0) % Plt Count (150-450) k/uL ESR (0-15) mm/hr Chloride (98-107) mmol/L Glucose (74-99) mg/dL POC Glucose (mg/dL) 401 H 290 H (75-99) mg/dL Plasma Lactic Acid Davi 2.1 H* (0.7-2.0) mmol/L C-Reactive Protein (<10.0) mg/L Prealbumin (18.0-42.0) mg/dL 01/13/18 01/13/18 01/14/18 Range/Units 17:04 20:10 07:00 WBC (3.8-10.6) k/uL RBC (4.30-5.90) m/uL Hgb (13.0-17.5) gm/dL Hct (39.0-53.0) % Plt Count (150-450) k/uL ESR (0-15) mm/hr Chloride (98-107) mmol/L Glucose (74-99) mg/dL POC Glucose (mg/dL) 260 H 160 H (75-99) mg/dL Plasma Lactic Acid Davi (0.7-2.0) mmol/L C-Reactive Protein (<10.0) mg/L Prealbumin <5.0 L (18.0-42.0) mg/dL 01/14/18 01/14/18 01/14/18 Range/Units 07:00 07:00 07:21 WBC 2.6 L (3.8-10.6) k/uL RBC 2.58 L (4.30-5.90) m/uL Hgb 8.1 L (13.0-17.5) gm/dL Hct 24.1 L (39.0-53.0) % Plt Count 59 L (150-450) k/uL ESR 46 H (0-15) mm/hr Chloride 111 H (98-107) mmol/L Glucose 247 H (74-99) mg/dL POC Glucose (mg/dL) 244 H (75-99) mg/dL Plasma Lactic Acid Davi (0.7-2.0) mmol/L C-Reactive Protein 21.2 H (<10.0) mg/L Prealbumin (18.0-42.0) mg/dL 01/14/18 Range/Units 11:23 WBC (3.8-10.6) k/uL RBC (4.30-5.90) m/uL Hgb (13.0-17.5) gm/dL Hct (39.0-53.0) % Plt Count (150-450) k/uL ESR (0-15) mm/hr Chloride (98-107) mmol/L Glucose (74-99) mg/dL POC Glucose (mg/dL) 315 H (75-99) mg/dL Plasma Lactic Acid Davi (0.7-2.0) mmol/L C-Reactive Protein (<10.0) mg/L Prealbumin (18.0-42.0) mg/dL Microbiology - Last 24 Hours (Table) 01/13/18 08:53 Blood Culture - Preliminary Blood No Growth after 24 hours 01/13/18 08:53 Gram Stain - Preliminary Foot - Left Wound Culture - Preliminary Assessment and Plan Plan: -Diabetic foot ulcer: Infectious disease evaluated the patient and bone scan was ordered for osteomyelitis because of the severity of the wound and infection patient will be started on Zosyn as well along with vancomycin. -Uncontrolled diabetes with us due to noncompliance with medications. Patient is presently on IV insulin which will be switched to Lantus and pre-meal insulin , patient blood sugars are fairly well controlled now, continue with same regimen. patient is not in DKA or hyperosmolar state. 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 -elevated lactic acidosis secondary to intravascular volume depletion from diuresis but is along with the diabetic foot infection. -Pancytopenia probably related to his alcohol use, B12 levels are pending, may need further evaluation as an outpatient
--- NOTE | 2018-01-14 14:44 | NM ---
EXAMINATION TYPE: NM bone 3 phase DATE OF EXAM: 01/14/2018 COMPARISON: NONE HISTORY: Plantar ulceration with history of diabetes. Evaluate for osteomyelitis. Triple phase bone scintigraphy was performed following the injection of24.3 mCi Tc 99m MDP. Immediat e images and 5.5 hours post injection images acquired. FINDINGS: There is focal increased flow and blood pool to the left midfoot, however no persistent asymmetric up take is seen on delays. Symmetric uptake on delayed images is seen within the hindfoot and mid feet. IMPRESSION: Findings are most indicative are arthropathy, left greater than right within the midfoot with no pers istent focal uptake on delayed images to suggest osteomyelitis.
--- NOTE | 2018-01-14 15:06 | CDI ---
Last Revision, September 2017 Documentation Clarification Form Date: January 14, 2018 From: Rosmery Beard RN Admit Date: 01/13/2018 12:09:00 PM Patient Name: Walter Noland Visit Number: [id number] ATTENTION: The Clinical Documentation Specialists (CDI) and [facility] Coding Staff appreciate your assistance in clarifying documentation. Please respond to the clarification below the line at the bottom and electronically sign. The CDI & [facility] Coding staff will review the response and follow-up if needed. Please note: Queries are made part of the Legal Health Record. If you have any questions, please contact the author of this message via ITS. Dr. Casimiro Burnham, History/Risk Factors: dm, liver disease, dm2, cirrhosis, etoh, esophageal varicies, gi bleeds, confusion, chronic kidney disease stage 2-3 Currently admitted with foot ulcer Clinical Indicators: WBC: 3.2 Lactic acid: 2.6 Vitals signs on admission: T 98.1, P 104, R 20, 113/59, 98% RA Treatment: ID Consult: Dr. Cason Antibiotics: IV Vanco., IV Piperacillin IV Bolus: x1 Monitor labs In your professional opinion, please clarify if these findings signify one of the following conditions, whether the condition is POA, and cause, if known: Sepsis ruled out Other, please specify Unable to determine Present on Admission: Yes No Please continue to document in your progress notes, under the line below and/ or in the discharge summary in order to capture severity of illness and risk of mortality. Include clinical findings that support your diagnosis. Sepsis ruled in MTDD
[2018-01-14 15:11] LABS: Hemoglobin A1C 9.3 % (4.0-6.0)
[2018-01-14 17:20] LABS: Glucose,Whole Blood 251 mg/dL (75-99)
[2018-01-14] MEDS: HYDROcodone/APAP 7.5-325MG 1 EACH TAB PO PRN (18:24)
[2018-01-14 20:26] LABS: Glucose,Whole Blood 238 mg/dL (75-99)
[2018-01-14] MEDS: INSULIN DETEMIR 100 UNIT/ML 10 ML VIAL SQ SCH (21:56)
--- NOTE | 2018-01-14 23:42 | P.PN ---
Subjective Progress Note Date: 01/14/18 Principal diagnosis: Diabetic foot ulcer 42-year-old male presents to emergency center with a made a history of increasing difficulties with his left foot. Patient has a long-standing history of diabetes mellitus type 2 relates he had stopped taking his medications. The patient had glucose level of greater than 500 at the time of his presentation is improved with insulin therapy. Initially the patient has a history also of severe peripheral neuropathy and has received medications and is quite sedated at this point in time without significant complaints. The patient relates that he's not been taking severe lots of medication, he does have chronic pancytopenia from chronic alcoholism. With evidence of an extensive diabetic foot infection the infectious diseases consultation was requested. The patient does not relate to significant known trauma, he does not have diabetic shoes, and is noted is not taking his diabetes medications at home and has uncontrolled diabetes. 01/14/2018 reveals the patient to be sedated and not having much pain at this time. He is without further fevers chills or rigors. Workup is in progress. Objective - Vital Signs Vital signs: Vital Signs Temp 98.5 F 01/14/18 23:00 Pulse 85 01/14/18 23:00 Resp 16 01/14/18 23:00 BP 117/63 01/14/18 23:00 Pulse Ox 97 01/14/18 23:00 Intake & Output 01/14/18 01/14/18 01/15/18 06:59 18:59 06:59 Intake Total 590 2500 Balance 590 2500 Weight 120.202 kg Intake: Intake, IV Titration 2000 Amount Sodium Chloride 0.9% 1, 1500 000 ml @ 125 mls/hr IV . Q8H [facility] Rx#:[id number] Vancomycin 2,500 mg In 500 Sodium Chloride 0.9% 500 ml @ 167 mls/hr IVPB ONCE ONE Rx#:[id number] Oral 590 500 Other: Voiding Method Toilet Toilet # Voids 3 4 - Exam 42-year-old male, 6 feet 5 inches tall HEENT: Anicteric conjunctiva are pink and moist nasal mucosa grossly intact without significant lesions, there is no thrush. Poor dentition Neck: The neck is supple without significant lymphadenopathy or thyromegaly. Lungs: Symmetrical entry is noted scattered wheezes are heard no bronchial sounds no dullness or egophony Heart: Regular rate and rhythm with an audible S1-S2, no S3 soft S4. There is no significant murmur click or rub, PMI was nondisplaced. Abdomen: Positive bowel sounds soft and nontender without palpable masses or organomegaly. There was no guarding or rebound. Extremities: The upper extremities have excellent pulses they are symmetric, no significant petechiae or telangiectasia. No splinter hemorrhages were noted. The left lower extremity is considerably larger in size than the right. Duplex performed without evidence of deep venous thrombosis. Left foot shows evidence of the ulceration at the lateral plantar surface the ulceration is approximately 3 x 2 x 0.2 cm with no expressible purulence the foot is tender to touch there is improvement of the surrounding erythema and ascending erythema along the lateral aspect of the calf. There is no erythema on the thigh and there is no significant tenderness in the left inguinal area. No lymphadenopathy is noted left inguinal or other areas. Neuro: Awake alert oriented to person place and time. Patient does seem to have markedly diminished sensation to the bilateral feet on exam, - Labs CBC & Chem 7: 01/14/18 07:00 01/14/18 07:00 Labs: Abnormal Lab Results - Last 24 Hours (Table) 01/14/18 01/14/18 01/14/18 Range/Units 07:00 07:00 07:00 WBC 2.6 L (3.8-10.6) k/uL RBC 2.58 L (4.30-5.90) m/uL Hgb 8.1 L (13.0-17.5) gm/dL Hct 24.1 L (39.0-53.0) % Plt Count 59 L (150-450) k/uL ESR 46 H (0-15) mm/hr Chloride (98-107) mmol/L Glucose (74-99) mg/dL POC Glucose (mg/dL) (75-99) mg/dL Hemoglobin A1c 9.3 H (4.0-6.0) % C-Reactive Protein (<10.0) mg/L Prealbumin <5.0 L (18.0-42.0) mg/dL 01/14/18 01/14/18 01/14/18 Range/Units 07:00 07:21 11:23 WBC (3.8-10.6) k/uL RBC (4.30-5.90) m/uL Hgb (13.0-17.5) gm/dL Hct (39.0-53.0) % Plt Count (150-450) k/uL ESR (0-15) mm/hr Chloride 111 H (98-107) mmol/L Glucose 247 H (74-99) mg/dL POC Glucose (mg/dL) 244 H 315 H (75-99) mg/dL Hemoglobin A1c (4.0-6.0) % C-Reactive Protein 21.2 H (<10.0) mg/L Prealbumin (18.0-42.0) mg/dL 01/14/18 01/14/18 Range/Units 17:17 20:23 WBC (3.8-10.6) k/uL RBC (4.30-5.90) m/uL Hgb (13.0-17.5) gm/dL Hct (39.0-53.0) % Plt Count (150-450) k/uL ESR (0-15) mm/hr Chloride (98-107) mmol/L Glucose (74-99) mg/dL POC Glucose (mg/dL) 251 H 238 H (75-99) mg/dL Hemoglobin A1c (4.0-6.0) % C-Reactive Protein (<10.0) mg/L Prealbumin (18.0-42.0) mg/dL Microbiology - Last 24 Hours (Table) 01/13/18 08:53 Gram Stain - Preliminary Foot - Left Wound Culture - Preliminary Presumptive Staph aureus 01/13/18 08:53 Blood Culture - Preliminary Blood No Growth after 24 hours Laboratory Results WBC 2.6 k/uL (3.8-10.6) L 01/14/18 07:00 RBC 2.58 m/uL (4.30-5.90) L 01/14/18 07:00 Hgb 8.1 gm/dL (13.0-17.5) L 01/14/18 07:00 Hct 24.1 % (39.0-53.0) L 01/14/18 07:00 MCV 93.6 fL (80.0-100.0) 01/14/18 07:00 MCH 31.3 pg (25.0-35.0) 01/14/18 07:00 MCHC 33.4 g/dL (31.0-37.0) 01/14/18 07:00 RDW 13.8 % (11.5-15.5) 01/14/18 07:00 Plt Count 59 k/uL (150-450) L 01/14/18 07:00 Neutrophils % 66 % 01/13/18 08:53 Lymphocytes % 20 % 01/13/18 08:53 Monocytes % 6 % 01/13/18 08:53 Eosinophils % 5 % 01/13/18 08:53 Basophils % 1 % 01/13/18 08:53 Neutrophils # 2.1 k/uL (1.3-7.7) 01/13/18 08:53 Lymphocytes # 0.6 k/uL (1.0-4.8) L 01/13/18 08:53 Monocytes # 0.2 k/uL (0-1.0) 01/13/18 08:53 Eosinophils # 0.2 k/uL (0-0.7) 01/13/18 08:53 Basophils # 0.0 k/uL (0-0.2) 01/13/18 08:53 Manual Slide Review Performed 01/13/18 08:53 RBC Morphology Normal 01/13/18 08:53 ESR 46 mm/hr (0-15) H 01/14/18 07:00 PT 11.4 sec (9.0-12.0) 01/13/18 08:53 INR 1.2 (<1.2) H 01/13/18 08:53 APTT 25.8 sec (22.0-30.0) 01/13/18 08:53 Sodium 142 mmol/L (137-145) 01/14/18 07:00 Potassium 4.0 mmol/L (3.5-5.1) 01/14/18 07:00 Chloride 111 mmol/L (98-107) H 01/14/18 07:00 Carbon Dioxide 23 mmol/L (22-30) 01/14/18 07:00 Anion Gap 8 mmol/L 01/14/18 07:00 BUN 20 mg/dL (9-20) 01/14/18 07:00 Creatinine 0.90 mg/dL (0.66-1.25) 01/14/18 07:00 Est GFR (CKD-EPI)AfAm >90 (>60 ml/min/1.73 sqM) 01/14/18 07:00 Est GFR (CKD-EPI)NonAf >90 (>60 ml/min/1.73 sqM) 01/14/18 07:00 Glucose 247 mg/dL (74-99) H 01/14/18 07:00 POC Glucose (mg/dL) 238 mg/dL (75-99) H 01/14/18 20:23 POC Glu Consulting Business Developer ID Judy Mcdonald 01/14/18 20:[address] Glu mg/dL 220 01/14/18 07:00 Hemoglobin A1c 9.3 % (4.0-6.0) H 01/14/18 07:00 Lactic Ac Sepsis Rflx Y 01/13/18 09:59 Plasma Lactic Acid Davi 2.1 mmol/L (0.7-2.0) H* 01/13/18 13:18 Calcium 8.4 mg/dL (8.4-10.2) 01/14/18 07:00 Total Bilirubin 1.0 mg/dL (0.2-1.3) 01/13/18 08:53 AST 19 U/L (17-59) 01/13/18 08:53 ALT 18 U/L (21-72) L 01/13/18 08:53 Alkaline Phosphatase 82 U/L (38-126) 01/13/18 08:53 C-Reactive Protein 21.2 mg/L (<10.0) H 01/14/18 07:00 Total Protein 6.1 g/dL (6.3-8.2) L 01/13/18 08:53 Albumin 2.9 g/dL (3.5-5.0) L 01/13/18 08:53 Prealbumin <5.0 mg/dL (18.0-42.0) L 01/14/18 07:00 Vitamin B12 746.0 pg/mL (200.0-944.0) 01/14/18 07:00 Acetone, Qual Negative (Negative) 01/13/18 08:53 Hepatitis A IgM Ab Non-Reactive (Non-Reactive) 01/14/18 07:00 Hep Bs Antigen Non-Reactive (Non-Reactive) 01/14/18 07:00 Hep B Core IgM Ab Non-Reactive (Non-Reactive) 01/14/18 07:00 Hep C IgG Ab Non-Reactive (Non-Reactive) 01/14/18 07:00 Microbiology 01/13/18 08:53 Foot - Left Gram Stain - Preliminary 01/13/18 08:53 Foot - Left Wound Culture - Preliminary Presumptive Staph aureus 01/13/18 08:53 Blood Blood Culture - Preliminary No Growth after 24 hours Assessment and Plan (1) Hyperosmolar non-ketotic state in patient with type 2 diabetes mellitus Current Visit: Yes Status: Acute Code(s): E11.01 - TYPE 2 DIABETES MELLITUS WITH HYPEROSMOLARITY WITH COMA SNOMED Code(s): 994140631 (2) Diabetic ulcer of left foot associated with type 2 diabetes mellitus, with fat layer exposed Narrative/Plan: 42-year-old male presents to hospital with a several-day history of worsening ulceration to the lateral aspect of his left foot. His a long- standing history of diabetes mellitus type 2 poorly controlled. He's not been taking any medications as of late. He also has a history of ongoing tobacco and alcohol use. At this time evaluation for underlying osteomyelitis will be done with a bone scan, cultures are then obtained a blood cultures are in process. Antibiotic therapy with vancomycin and Zosyn has been started which is appropriate for this very worrisome ulceration which could be involving the underlying bony structures. Local wound care with therahoney is requested and offloading to the site is requested. He will be seen by dietary to improve his protein intake and help with his poorly controlled diabetes. The patient was complaining of severe pain is now much more comfortable. No evidence of any deep venous thrombosis at admission. The etiology of the left leg swelling is not clear, patient does have underlying liver disease and could be related to this but is somewhat asymmetric. Patient not providing history of any significant trauma or prior surgical interventions into the left leg. The foot is warm and well perfused with easily palpable pulse. 01/14/2019 reveals that the bone scan has come back as negative underlying osteomyelitis. The patient's pancytopenia is little change. He overspending to the current antibiotic therapy with reduction of the cellulitic response to the limb. Staph aureus being isolated. We'll expect an oral regiment to be utilized the time of his discharge with local wound care and hopefully follow- up in the wound healing Center. Current Visit: Yes Status: Acute Code(s): E11.621 - TYPE 2 DIABETES MELLITUS WITH FOOT ULCER; L97.522 - NON-PRS CHRONIC ULCER OTH PRT LEFT FOOT W FAT LAYER EXPOSED SNOMED Code(s): 8396948003643 (3) Other drug-induced pancytopenia Current Visit: Yes Status: Acute Code(s): D61.811 - OTHER DRUG-INDUCED PANCYTOPENIA SNOMED Code(s): 6154394
[2018-01-15] MEDS: SODIUM CHLORIDE 0.9% 1,000 ML IV SCH ×4 (03:59→16:51)
[2018-01-15] MEDS: HYDROcodone/APAP 7.5-325MG 1 EACH TAB PO PRN (05:39)
[2018-01-15] MEDS: INSULIN ASPART 100 UNIT/ML 1 ML 10 ML VIAL SQ SCH ×3 (07:36→17:54)
[2018-01-15 07:54] LABS: Glucose,Whole Blood 161 mg/dL (75-99)
[2018-01-15 08:16] VITALS: BP 107/53; PULSE 83; RESP 17; TEMP 98.9
[2018-01-15] MEDS ORDERED: VANCOMYCIN TROUGH DUE 1 EACH MISC MISCELLANE ONE (11:00)
[2018-01-15 11:15] LABS: Anion Gap 10 mmol/L; Blood Urea Nitrogen 19 mg/dL (9-20); Calcium 8.6 mg/dL (8.4-10.2); Carbon Dioxide 21 mmol/L (22-30); Chloride 112 mmol/L (98-107); Glucose 219 mg/dL (74-99); Potassium 4.1 mmol/L (3.5-5.1); Sodium 143 mmol/L (137-145)
[2018-01-15 11:40] LABS: Glucose,Whole Blood 207 mg/dL (75-99)
[2018-01-15] MEDS: VANCOMYCIN 2,000 MG in SODIUM CHLORIDE 0.9% 500 ML IVPB SCH (12:45)
[2018-01-15] MEDS ORDERED: MORPHINE ORAL SOLN 10 MG/5 ML CUP PO PRN (15:12)
[2018-01-15 17:51] LABS: Glucose,Whole Blood 231 mg/dL (75-99)
--- NOTE | 2018-01-15 18:34 | P.DS ---
Providers Date of admission: 01/13/18 12:09 Expected date of discharge: 01/15/18 Attending physician: Eliecer Burnham Consults: 01/13/18 16:40 Consult Physician Routine Consulting Provider: Bam Cason Consult Reason/Comments: Diabetic foot infection Do you want consulting provider notified?: Yes Primary care physician: Stated None Dr. Fajardo Hospital Course: Final Diagnoses: -Diabetic foot ulcer -Uncontrolled diabetes with us due to noncompliance with medications. 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 -Pancytopenia probably related to his alcohol use, B12 levels are pending, may need further evaluation as an outpatient Hospital course: This is a 42-year-old gentleman admitted with diabetic foot ulcer, uncontrolled diabetes, alcohol abuse and multiple other medical issues. Evaluated by infectious disease. Maintained on IV antibiotics. Bone scan reported negative for osteomyelitis. Maintained on Levemir insulin, sliding scale. Significant clinical improvement. Case management assisting patient with diabetic supplies, glucometer ,discharge medications to include one long- acting insulin. Patient to be discharged home once ID clears and discharge antibiotics/Wound Care received. Patient is being discharged home in a stable condition with guarded prognosis. Physical Exam:VSS, alert and oriented 3, no acute distressCV: Regular S1 and S2.LUNGS: Clear to auscultation. ABD: Soft, nontender, positive bowel sounds. NEURO: No focal deficits. The impression and plan of care has been dictated as directed. : I performed a history and examination of this patient, discussed the same with the dictator. I agree with the dictator's note ,documented as a scribe. Any additional findings or plans will be noted. Time taken: 35 minutes Patient Condition at Discharge: Stable Plan - Discharge Summary Discharge Rx Participant: No New Discharge Prescriptions: New glipiZIDE [Glucotrol] 5 mg PO AC-BID #60 tab Insulin Detemir [Levemir] 30 unit SQ HS #1 syr metFORMIN HCL [Glucophage] 500 mg PO BID #60 tab Acetaminophen Tab [Tylenol] 650 mg PO Q6HR PRN tab PRN Reason: Mild Pain Or Fever > 100.5 Thiamine [Vitamin B-1] 100 mg PO DAILY #30 tablet Folic Acid 1 mg PO DAILY #30 tablet Multivitamins, Thera [Multivitamin (formulary)] 1 tab PO DAILY #30 tablet traMADol HCl [Ultram] 50 mg PO QID PRN #20 tab PRN Reason: MODERATE Pain Cephalexin [Keflex] 500 mg PO Q8HR #42 cap Discharge Medication List Acetaminophen Tab [Tylenol] 650 mg PO Q6HR PRN tab 01/15/18 [Rx] Cephalexin [Keflex] 500 mg PO Q8HR #42 cap 01/15/18 [Rx] Folic Acid 1 mg PO DAILY #30 tablet 01/15/18 [Rx] Insulin Detemir [Levemir] 30 unit SQ HS #1 syr 01/15/18 [Rx] Multivitamins, Thera [Multivitamin (formulary)] 1 tab PO DAILY #30 tablet [Rx] Thiamine [Vitamin B-1] 100 mg PO DAILY #30 tablet 01/15/18 [Rx] glipiZIDE [Glucotrol] 5 mg PO AC-BID #60 tab 01/15/18 [Rx] metFORMIN HCL [Glucophage] 500 mg PO BID #60 tab 01/15/18 [Rx] traMADol HCl [Ultram] 50 mg PO QID PRN #20 tab 01/15/18 [Rx] Follow up Appointment(s)/Referral(s): Mani Fajardo MD [STAFF PHYSICIAN] - 3 Days (please arrange prior to dc) Bam Cason MD [STAFF PHYSICIAN] - 1 Week Ambulatory/Diagnostic Orders: Complete Blood Count w/diff [LAB.AMB] Time Frame: 3 Days, Location: Determined By Patient Patient Instructions/Handouts: Cephalexin (By mouth), Thiamine (By mouth), Folic Acid (By mouth), Tramadol (By mouth), Insulin Detemir (By injection), Diabetic Foot Ulcers (DC), Diabetic Hyperglycemia (DC) Activity/Diet/Wound Care/Special Instructions: Change dressing daily using therahoney and then dry gauze. Diet: Consistent carb Activity: Limited until follow up
--- NOTE | 2018-01-15 22:59 | P.PN ---
Subjective Progress Note Date: 01/15/18 Principal diagnosis: Diabetic foot ulcer 42-year-old male presents to emergency center with a made a history of increasing difficulties with his left foot. Patient has a long-standing history of diabetes mellitus type 2 relates he had stopped taking his medications. The patient had glucose level of greater than 500 at the time of his presentation is improved with insulin therapy. Initially the patient has a history also of severe peripheral neuropathy and has received medications and is quite sedated at this point in time without significant complaints. The patient relates that he's not been taking severe lots of medication, he does have chronic pancytopenia from chronic alcoholism. With evidence of an extensive diabetic foot infection the infectious diseases consultation was requested. The patient does not relate to significant known trauma, he does not have diabetic shoes, and is noted is not taking his diabetes medications at home and has uncontrolled diabetes. 01/14/2018 reveals the patient to be sedated and not having much pain at this time. He is without further fevers chills or rigors. Workup is in progress. 01/15/2018 reveals the patient to be doing better today. No new acute difficult are noted. He is dressed and would like to go home. There is evidence that the bone scan is negative underlying osteomyelitis. His culture shows evidence of MSSA. They will help him with his antibiotic therapy and some diabetic supplies at discharge. The indigent funds. Objective - Vital Signs Vital signs: Vital Signs Temp 98.9 F 01/15/18 07:49 Pulse 83 01/15/18 07:49 Resp 17 01/15/18 07:49 BP 107/53 01/15/18 07:49 Pulse Ox 95 01/15/18 07:49 Intake & Output 01/15/18 01/15/18 01/16/18 06:59 18:59 06:59 Intake Total 1150 1600 Balance 1150 1600 Weight 120.202 kg 120.202 kg Intake: Intake, IV Titration 1150 1600 Amount Sodium Chloride 0.9% 1, 1150 000 ml @ 125 mls/hr IV . Q8H [facility] Rx#:[id number] Sodium Chloride 0.9% 1, 1600 000 ml @ 200 mls/hr IV . Q5H [facility] Rx#:[id number] Other: Voiding Method Toilet Toilet # Voids 2 1 - Exam 42-year-old male, 6 feet 5 inches tall HEENT: Anicteric conjunctiva are pink and moist nasal mucosa grossly intact without significant lesions, there is no thrush. Poor dentition Neck: The neck is supple without significant lymphadenopathy or thyromegaly. Lungs: Symmetrical entry is noted scattered wheezes are heard no bronchial sounds no dullness or egophony Heart: Regular rate and rhythm with an audible S1-S2, no S3 soft S4. There is no significant murmur click or rub, PMI was nondisplaced. Abdomen: Positive bowel sounds soft and nontender without palpable masses or organomegaly. There was no guarding or rebound. Extremities: The upper extremities have excellent pulses they are symmetric, no significant petechiae or telangiectasia. No splinter hemorrhages were noted. The left lower extremity is considerably larger in size than the right. Duplex performed without evidence of deep venous thrombosis. Left foot shows evidence of the ulceration at the lateral plantar surface the ulceration is approximately 3 x 2 x 0.2 cm with no expressible purulence the foot is tender to touch there is improvement of the surrounding erythema and ascending erythema along the lateral aspect of the calf. There is no erythema on the thigh and there is no significant tenderness in the left inguinal area. No lymphadenopathy is noted left inguinal or other areas. Neuro: Awake alert oriented to person place and time. Patient does seem to have markedly diminished sensation to the bilateral feet on exam, - Labs CBC & Chem 7: 01/14/18 07:00 01/15/18 10:34 Labs: Abnormal Lab Results - Last 24 Hours (Table) 01/15/18 01/15/18 01/15/18 Range/Units 07:23 10:34 11:32 Chloride 112 H (98-107) mmol/L Carbon Dioxide 21 L (22-30) mmol/L Glucose 219 H (74-99) mg/dL POC Glucose (mg/dL) 161 H 207 H (75-99) mg/dL 01/15/18 Range/Units 17:45 Chloride (98-107) mmol/L Carbon Dioxide (22-30) mmol/L Glucose (74-99) mg/dL POC Glucose (mg/dL) 231 H (75-99) mg/dL Microbiology - Last 24 Hours (Table) 01/13/18 08:53 Gram Stain - Final Foot - Left Wound Culture - Final Staphylococcus aureus 01/13/18 08:53 Blood Culture - Preliminary Blood No Growth after 48 hours Laboratory Results WBC 2.6 k/uL (3.8-10.6) L 01/14/18 07:00 RBC 2.58 m/uL (4.30-5.90) L 01/14/18 07:00 Hgb 8.1 gm/dL (13.0-17.5) L 01/14/18 07:00 Hct 24.1 % (39.0-53.0) L 01/14/18 07:00 MCV 93.6 fL (80.0-100.0) 01/14/18 07:00 MCH 31.3 pg (25.0-35.0) 01/14/18 07:00 MCHC 33.4 g/dL (31.0-37.0) 01/14/18 07:00 RDW 13.8 % (11.5-15.5) 01/14/18 07:00 Plt Count 59 k/uL (150-450) L 01/14/18 07:00 Neutrophils % 66 % 01/13/18 08:53 Lymphocytes % 20 % 01/13/18 08:53 Monocytes % 6 % 01/13/18 08:53 Eosinophils % 5 % 01/13/18 08:53 Basophils % 1 % 01/13/18 08:53 Neutrophils # 2.1 k/uL (1.3-7.7) 01/13/18 08:53 Lymphocytes # 0.6 k/uL (1.0-4.8) L 01/13/18 08:53 Monocytes # 0.2 k/uL (0-1.0) 01/13/18 08:53 Eosinophils # 0.2 k/uL (0-0.7) 01/13/18 08:53 Basophils # 0.0 k/uL (0-0.2) 01/13/18 08:53 Manual Slide Review Performed 01/13/18 08:53 RBC Morphology Normal 01/13/18 08:53 ESR 46 mm/hr (0-15) H 01/14/18 07:00 PT 11.4 sec (9.0-12.0) 01/13/18 08:53 INR 1.2 (<1.2) H 01/13/18 08:53 APTT 25.8 sec (22.0-30.0) 01/13/18 08:53 Sodium 143 mmol/L (137-145) 01/15/18 10:34 Potassium 4.1 mmol/L (3.5-5.1) 01/15/18 10:34 Chloride 112 mmol/L (98-107) H 01/15/18 10:34 Carbon Dioxide 21 mmol/L (22-30) L 01/15/18 10:34 Anion Gap 10 mmol/L 01/15/18 10:34 BUN 19 mg/dL (9-20) 01/15/18 10:34 Creatinine 0.80 mg/dL (0.66-1.25) 01/15/18 10:34 Est GFR (CKD-EPI)AfAm >90 (>60 ml/min/1.73 sqM) 01/15/18 10:34 Est GFR (CKD-EPI)NonAf >90 (>60 ml/min/1.73 sqM) 01/15/18 10:34 Glucose 219 mg/dL (74-99) H 01/15/18 10:34 POC Glucose (mg/dL) 231 mg/dL (75-99) H 01/15/18 17:45 POC Glu Ironing Machine Operator ID Tika Jacobo 01/15/18 17:[address] Glu mg/dL 220 01/14/18 07:00 Hemoglobin A1c 9.3 % (4.0-6.0) H 01/14/18 07:00 Lactic Ac Sepsis Rflx Y 01/13/18 09:59 Plasma Lactic Acid Davi 2.1 mmol/L (0.7-2.0) H* 01/13/18 13:18 Calcium 8.6 mg/dL (8.4-10.2) 01/15/18 10:34 Total Bilirubin 1.0 mg/dL (0.2-1.3) 01/13/18 08:53 AST 19 U/L (17-59) 01/13/18 08:53 ALT 18 U/L (21-72) L 01/13/18 08:53 Alkaline Phosphatase 82 U/L (38-126) 01/13/18 08:53 C-Reactive Protein 21.2 mg/L (<10.0) H 01/14/18 07:00 Total Protein 6.1 g/dL (6.3-8.2) L 01/13/18 08:53 Albumin 2.9 g/dL (3.5-5.0) L 01/13/18 08:53 Prealbumin <5.0 mg/dL (18.0-42.0) L 01/14/18 07:00 Vitamin B12 746.0 pg/mL (200.0-944.0) 01/14/18 07:00 Vancomycin Trough 20.5 ug/mL 01/15/18 10:34 Acetone, Qual Negative (Negative) 01/13/18 08:53 Hepatitis A IgM Ab Non-Reactive (Non-Reactive) 01/14/18 07:00 Hep Bs Antigen Non-Reactive (Non-Reactive) 01/14/18 07:00 Hep B Core IgM Ab Non-Reactive (Non-Reactive) 01/14/18 07:00 Hep C IgG Ab Non-Reactive (Non-Reactive) 01/14/18 07:00 Microbiology 01/13/18 08:53 Foot - Left Gram Stain - Final 01/13/18 08:53 Foot - Left Wound Culture - Final Staphylococcus aureus 01/13/18 08:53 Blood Blood Culture - Preliminary No Growth after 48 hours Assessment and Plan (1) Hyperosmolar non-ketotic state in patient with type 2 diabetes mellitus Status: Acute Code(s): E11.01 - TYPE 2 DIABETES MELLITUS WITH HYPEROSMOLARITY WITH COMA SNOMED Code(s): 837917930 (2) Diabetic ulcer of left foot associated with type 2 diabetes mellitus, with fat layer exposed Narrative/Plan: 42-year-old male presents to hospital with a several-day history of worsening ulceration to the lateral aspect of his left foot. His a long- standing history of diabetes mellitus type 2 poorly controlled. He's not been taking any medications as of late. He also has a history of ongoing tobacco and alcohol use. At this time evaluation for underlying osteomyelitis will be done with a bone scan, cultures are then obtained a blood cultures are in process. Antibiotic therapy with vancomycin and Zosyn has been started which is appropriate for this very worrisome ulceration which could be involving the underlying bony structures. Local wound care with therahoney is requested and offloading to the site is requested. He will be seen by dietary to improve his protein intake and help with his poorly controlled diabetes. The patient was complaining of severe pain is now much more comfortable. No evidence of any deep venous thrombosis at admission. The etiology of the left leg swelling is not clear, patient does have underlying liver disease and could be related to this but is somewhat asymmetric. Patient not providing history of any significant trauma or prior surgical interventions into the left leg. The foot is warm and well perfused with easily palpable pulse. 01/14/2018 reveals that the bone scan has come back as negative underlying osteomyelitis. The patient's pancytopenia is little change. He overspending to the current antibiotic therapy with reduction of the cellulitic response to the limb. Staph aureus being isolated. We'll expect an oral regiment to be utilized the time of his discharge with local wound care and hopefully follow- up in the wound healing Center. 01/14/2018 reveals the patient to have further improvement. Bone scan is negative no evidence of underlying osteomyelitis. MSSA has been isolated. With these findings and improvement to the foot in improvement of his blood sugar he is ready for discharge to home. Cephalexin 500 mg every 8 hours has been sent to the pharmacy and apparently will be covered by the [employer] funds to ensure that he has antibiotic therapy as well as some insulin-based medications. He knows he'll need to continue to care for the ulceration. It possibly could follow-up in the wound healing Center. Status: Acute Code(s): E11.621 - TYPE 2 DIABETES MELLITUS WITH FOOT ULCER; L97.522 - NON-PRS CHRONIC ULCER OTH PRT LEFT FOOT W FAT LAYER EXPOSED SNOMED Code(s): 4814288222708 (3) Other drug-induced pancytopenia Status: Acute Code(s): D61.811 - OTHER DRUG-INDUCED PANCYTOPENIA SNOMED Code (s): 4778520
[2018-01-16] MEDS ORDERED: VANCOMYCIN 1,750 MG in SODIUM CHLORIDE 0.9% 250 ML IVPB SCH (09:00)
== END 2018-01-15 18:40 | disposition home or self-care (01) | DRG 871 ==
LOC: EC 08:18 → 4MS4W 12:09 → 5ONC 13:29 → 5MS5E 17:26
PROVIDERS: ADMIT Hospitalist; ATTEND Hospitalist
DX: A41.9 Sepsis, unspecified organism (principal); E11.00 Type 2 diabetes mellitus with hyperosmolarity without nonketotic hyperglycemic-hyperosmolar coma (NKHHC); D61.818 Other pancytopenia; L03.116 Cellulitis of left lower limb; I85.00 Esophageal varices without bleeding; L97.529 Non-pressure chronic ulcer of other part of left foot with unspecified severity; E11.22 Type 2 diabetes mellitus with diabetic chronic kidney disease; N18.3 Chronic kidney disease, stage 3 (moderate); E11.42 Type 2 diabetes mellitus with diabetic polyneuropathy; E11.621 Type 2 diabetes mellitus with foot ulcer; K74.60 Unspecified cirrhosis of liver; E11.628 Type 2 diabetes mellitus with other skin complications; E86.9 Volume depletion, unspecified; F10.20 Alcohol dependence, uncomplicated; F17.200 Nicotine dependence, unspecified, uncomplicated; F32.9 Major depressive disorder, single episode, unspecified; F41.9 Anxiety disorder, unspecified; T50.2X5A Adverse effect of carbonic-anhydrase inhibitors, benzothiadiazides and other diuretics, initial encounter; Z91.14 Patient's other noncompliance with medication regimen; Y92.009 Unspecified place in unspecified non-institutional (private) residence as the place of occurrence of the external cause
CPT/HCPCS: 36415; 78315; 80048; 80053; 80074; 80202; 82009; 82607; 83036; 83605; 84134; 85025; 85027; 85610; 85652; 85730; 86140; 87040; 87070; 87077; 87186; 87205; 96365; 96366; 96367; 99285